=== PATIENT | male | born 1960 | race Caucasian/White ===

== ENCOUNTER 2018-09-22 11:32 | Inpatient (IN) | payer MEDICAID, MEDICARE ==
[2018-09-22] MEDS ORDERED: NS 0.9% 1000 ML** 1,000 ML IV ONE (11:53)
--- NOTE | 2018-09-22 11:57 | ED ---
Complex/Multi-Sys Presentation - HPI Summary HPI Summary: This pt is a 57 y/o male presenting to [facility] for generalized weakness today. Pt lives at a shelter and has hx of MR. Per triage note "Home that pt lives in then sent him here for generalized weakness, diaphoretic and AMS." Per caregiver , pt is not at baseline and has not been eating or drinking. Per caregiver, pt was seen at [facility] today and was discharged with gastroenteritis. Pt states he has diarrhea. He is noted to have a nonproductive cough. Denies any pain, headache, sore throat, chest pain, abd pain. PMHx schizophrenia. HPI IS LIMITED DUE TO LEVEL 5 CAVEAT - pt with MR - History Of Current Complaint Chief Complaint: EDWeakness Time Seen by Provider: 09/22/18 11:43 Hx Obtained From: Patient Hx From Patient Unobtainable Due To: Other - LEVEL 5 CAVEAT - pt with MR Onset/Duration: Lasting Hours, Still Present Timing: Hours Aggravating Factor(s): unknown Alleviating Factor(s): unknown Associated Signs And Symptoms: Positive: Cough, Diarrhea, Other - NEG: sore throat. Negative: Headache, Chest Pain, Abdominal Pain, Fever - Allergies/Home Medications Allergies/Adverse Reactions: Allergies Allergy/AdvReac Type Severity Reaction Status Date / Time bee venom protein (honey bee) Allergy Unknown Verified 09/22/18 11:40 Reaction Details Home Medications: Home Medications Albuterol Sulfate [Proventil Hfa] 6.7 gm INH Q4HR PRN 09/22/18 [History Confirmed 09/22/18] Aspirin TAB* [Aspirin 325 MG TAB*] 325 mg PO DAILY 09/22/18 [History Confirmed 09/22/18] Atorvastatin* [Lipitor*] 80 mg PO BEDTIME 09/22/18 [History Confirmed 09/22/18] Benzonatate CAP* [Tessalon 100 MG CAP*] 200 mg PO Q8HR PRN 09/22/18 [History Confirmed 09/22/18] CloZAPine TAB* 100 mg PO DAILY 09/22/18 [History Confirmed 09/22/18] CloZAPine TAB* 300 mg PO BEDTIME 09/22/18 [History Confirmed 09/22/18] Escitalopram * [Lexapro 5 mg (NF)] 5 mg PO DAILY 09/22/18 [History Confirmed 07/12] Losartan TAB* [Cozaar TAB*] 12.5 mg PO BEDTIME 09/22/18 [History Confirmed 09/22] fluPHENAZine HCL TAB* [Prolixin TAB*] 10 mg PO DAILY PRN 09/22/18 [History Confirmed 09/22/18] fluPHENAZine HCL TAB* [Prolixin TAB*] 15 mg PO BEDTIME 09/22/18 [History Confirmed 09/22/18] PMH/Surg Hx/FS Hx/Imm Hx Previously Healthy: No - Unknown due to level 5 caveat Psychiatric History: Reports: Hx Schizophrenia Infectious Disease History: No Infectious Disease History: Denies: Traveled Outside the [place] in Last 30 Days - Family History Known Family History: Positive: Unknown - LEVEL 5 CAVEAT - pt with MR - Social History Lives: [facility] Alcohol Use: None Substance Use Type: Reports: None Review of Systems - ROS Summary Review of Systems Summary: ROS IS LIMITED DUE TO LEVEL 5 CAVEAT - pt with MR Negative: Fever Negative: Sore Throat Negative: Chest Pain Positive: Cough Positive: Diarrhea. Negative: Abdominal Pain Positive: Weakness. Negative: Headache All Other Systems Reviewed And Are Negative: No Physical Exam - Summary Physical Exam Summary: VITAL SIGNS: Reviewed. GENERAL: Patient is a well-developed and elderly thin male who is lying comfortable in the stretcher. Patient is not in any acute respiratory distress. HEAD AND FACE: No signs of trauma. No ecchymosis, hematomas or skull depressions. No sinus tenderness. EYES: PERRLA, EOMI x 2, No injected conjunctiva, no nystagmus. EARS: Hearing grossly intact. Ear canals and tympanic membranes are within normal limits. MOUTH: Oropharynx within normal limits. Oral mucosa is dry. Poor dentition. No pharyngeal erythema. NECK: Supple, trachea is midline, no adenopathy, no JVD, no carotid bruit, no c- spine tenderness, neck with full ROM. CHEST: Symmetric, no tenderness at palpation LUNGS: Clear to auscultation bilaterally. No wheezing or crackles. CVS: Regular rate and rhythm, S1 and S2 present, no murmurs or gallops appreciated. ABDOMEN: Soft, non-tender. No signs of distention. No rebound no guarding, and no masses palpated. Bowel sounds are normal. EXTREMITIES: FROM in all major joints, no edema, no cyanosis or clubbing. NEURO: Alert and oriented at baseline. No acute neurological deficits. Follows commands. Pt unable to answer all questions secondary to mental retardation. SKIN: Dry and warm Triage Information Reviewed: Yes Vital Signs On Initial Exam: Initial Vitals Temp Pulse Resp BP Pulse Ox 98.0 F 97 20 128/78 97 09/22/18 11:36 09/22/18 11:36 09/22/18 11:36 09/22/18 11:36 09/22/18 11:36 Vital Signs Reviewed: Yes Completion Of Physical Exam Limited Due To: Level 5 - pt with MR Diagnostics - Vital Signs Vital Signs Temp Pulse Resp BP Pulse Ox 09/22/18 11:36 98.0 F 97 20 128/78 97 - Laboratory Result Diagrams: 09/22/18 12:23 09/22/18 12:23 Lab Statement: Any lab studies that have been ordered have been reviewed, and results considered in the medical decision making process. - Radiology Chest XR Radiology Interpretation Completed By: Radiologist Summary of Radiographic Findings: IMPRESSION: There is suggestion of right upper lobe infiltrate. Follow-up exam is suggested. Dr. Quinn has reviewed this report. Complex Multi-Symp Course/Dx Assessment/Plan: This pt is a 57 y/o male presenting to [facility] for generalized weakness today. Pt lives at a shelter and has hx of MR. Per triage note "Home that pt lives in then sent him here for generalized weakness, diaphoretic and AMS." Per caregiver, pt is not at baseline and has not been eating or drinking. Per caregiver, pt was seen at [facility] today and was discharged with gastroenteritis. Pt states he has diarrhea. He is noted to have a nonproductive cough. Denies any pain, headache, sore throat, chest pain, abd pain. PMHx schizophrenia. Test results without any significant abnormality except for white blood cell count of 13.2, BUN is 35, alkaline phosphatase is 112. Urinalysis is negative for UTI. Chest x-ray shows right upper lobe infiltrate. CURB65: Has a moderate risk. Therefore I discussed my physical exam, findings and test results with Dr. Penaloza, from the hospitalist services, who accepted the patient for admission. Patient is hemodynamically stable. - Diagnoses Provider Diagnoses: Pneumonia - Physician Notifications Discussed Care Of Patient With: Siva Penaloza - hospitalist Time Discussed With Above Provider: 13:35 Instructed by Provider To: Admit As Inpatient Discharge - Sign-Out/Discharge Documenting (check all that apply): Patient Departure - Admit to [facility] Patient Received Moderate/Deep Sedation with Procedure: No - Discharge Plan Condition: Stable Disposition: ADMITTED TO [facility] - Billing Disposition and Condition Condition: STABLE Disposition: Admitted to [facility] - Attestation Statements Document Initiated by Obede: Yes Documenting Scribe: Lexie Beavers Provider For Whom Andrew is Documenting (Include Credential): Carlos Alberto Quinn MD Scribe Attestation: Lexie Almazan, scribed for Carlos Alberto Quinn MD on 09/22/18 at 1829. Scribe Documentation Reviewed: Yes Provider Attestation: The documentation as recorded by the Lexie wen accurately reflects the service I personally performed and the decisions made by , Carlos Alberto Quinn MD Status of Scribe Document: Viewed
[2018-09-22] MEDS ORDERED: cefTRIAXone(*) 1 GM in NS 0.9% 50 ML* 50 ML IVPB ONE (12:33)
[2018-09-22 12:37] LABS: ABS Basophils 0.1 10^3/ul (0-0.2); ABS Eosinophils 0 10^3/ul (0-0.6); ABS Lymphocytes 1.5 10^3/ul (1.0-4.8); ABS Monocytes 1.1 10^3/ul (0-0.8); ABS Neutrophils 10.6 10^3/ul (1.5-7.7); ABS Nucleated RBC 0 10^3/ul; Eosinophil % 0.2 %; Hematocrit 45 % (36-46); Hemoglobin 15.1 g/dL (14.0-18.0); Lymphocyte % 11.2 %; Mean Corpuscular HGB Conc 33 g/dL (31-36); Mean Corpuscular Hemoglobin 30 pg (27-31); Mean Corpuscular Volume 89 fL (80-94); Mean Platelet Volume 7.8 fL (7.4-10.4); Nucleated Red Blood Cells % 0; Platelet Count 291 10^3/uL (150-450); Red Blood Count 5.09 10^6 /uL (4.18-5.48); Red Cell Distribution Width 15 % (10.5-15); White Blood Count 13.2 10^3/uL (3.5-10.8)
[2018-09-22 12:59] LABS: Albumin 4.1 g/dL (3.2-5.2); Albumin/Globulin Ratio 1.5 (1-3); BUN/Creatinine Ratio 42.7 (8-20); C Reactive Protein 3.71 mg/L (<8.01); EGFR African American 116.8 (>60); EGFR Non-African American 96.5 (>60); Globulin 2.7 g/dL (2-4); Total Bilirubin 0.8 mg/dL (0.2-1.0); Total Protein 6.8 g/dL (6.4-8.9)
[2018-09-22 14:22] LABS: Urine Appearance Clear; Urine Bacteria Absent (Absent); Urine Bilirubin Negative (Negative); Urine Blood Negative (Negative); Urine Color Yellow; Urine Glucose Negative (Negative); Urine Ketones 2+ (Negative); Urine Nitrite Negative (Negative); Urine Protein 1+(30 mg/dL) (Negative); Urine Red Blood Cell Trace(0-2/hpf) (Absent); Urine Specific Gravity 1.025 (1.010-1.030); Urine Squamous Epithelial Cell Present (Absent); Urine Urobilinogen Negative (Negative); Urine White Blood Cell Absent (Absent)
[2018-09-22] MEDS ORDERED: Albuterol/Ipratropium NEB.SOL* Albuterol 2.5 MG/Ipratropium 0.5 MG 3 ML INH PRN (14:32)
[2018-09-22] MEDS ORDERED: Albuterol HFA INHALER* 8 gm MDI INH PRN (14:39)
[2018-09-22] MEDS ORDERED: fluPHENAZine HCL TAB* 5 MG PO PRN (14:39)
[2018-09-22] MEDS ORDERED: NS 0.9% 1000 ML** 1,000 ML IV SCH (14:45)
[2018-09-22] MEDS: Benzonatate CAP* 100 MG PO PRN ×2 (17:10→23:51)
[2018-09-22] MEDS: predniSONE TAB* 20 MG PO SCH (17:11)
[2018-09-22] MEDS: Enoxaparin(*) 40 MG/0.4 ML SYR SUBCUT SCH (17:15)
[2018-09-22] MEDS: Azithromycin IV(*) 500 MG in NS 0.9% 250 ML* 250 ML IVPB SCH (17:16)
--- NOTE | 2018-09-22 19:00 | HP ---
CC: Dr. Key * HISTORY AND PHYSICAL: DATE OF ADMISSION: 09/22/18 PRIMARY CARE PROVIDER: Dr. Key at [facility] in [place]. ATTENDING PHYSICIAN: Dr. Siva Penaloza * (dictated by ELYSSA Cardona) CHIEF COMPLAINT: Cough, generalized weakness, diaphoresis, and fatigue. HISTORY OF PRESENT ILLNESS: Mr. Branch is a 57-year-old male with a past medical history as described below, who presents to the ER today with a complaint of cough. He is a gentleman, who lives at [facility] in [place]. Staff note that he has generalized weakness and diaphoresis for the last couple of days. He was noted to have gone to [facility] this morning and was diagnosed with gastroenteritis. He was not improving throughout the day and was then brought to the ER. He is noted to have a productive cough since this morning. Staff note that the patient typically has a slight dry cough most of the time. He is also noted to have some mentation changes. Staff state that he is typically relatively talkative, but today he appears to be fatigued and mumbling his words. He does speak coherently, but appears fatigued. It is noted that the last time he ate was 2 to 3 days ago. His intake consists only of coffee for the last approximately 3 days. It is also noted that he has had no reported diarrhea, per patient and staff nurse, but that he did have an episode of dry heaves with no emesis this morning. He is sleepy and when asked questions he answers, but with few words. He states that he has had a cough, but denies diarrhea. He does admit to some shortness of breath. He denies abdominal pain. He denies urinary symptoms such as frequency, urgency, burning. He denies fever, chills, but he has had occasional diaphoresis, his housing staff report. While in the emergency room, a full workup was done. Chest x-ray was performed, which suggested right upper lobe infiltrate and followup exams. Laboratory data showed leukocytosis. Urinalysis was negative for urinary tract infection. In the ER, he was given 1 L of normal saline and 1 g of ceftriaxone. Hospitalist team was asked to evaluate the patient for admission. PAST MEDICAL HISTORY: 1. COPD. 2. Coronary artery disease. 3. Anxiety/depression. 4. Tobacco abuse. 5. History of schizophrenia. 6. Probable hypertension. PAST SURGICAL HISTORY: Unobtainable. HOME MEDICATIONS: 1. Fluphenazine HCl 10 mg p.o. at bedtime. 2. Fluphenazine HCl 10 mg p.o. p.r.n. psychosis. 3. Escitalopram 5 mg p.o. daily. 4. Atorvastatin 80 mg p.o. at bedtime. 5. Losartan 12.5 mg p.o. at bedtime. 6. Albuterol sulfate 6.7 g inhalation q.4 hours p.r.n. 7. Aspirin 325 mg p.o. daily. 8. Clozapine 100 mg p.o. in the morning. 9. Clozapine 300 mg p.o. at bedtime. 10. Benzonatate 200 mg p.o. q.8 hours p.r.n. 11. Toprol-XL 12.5 mg p.o. daily. 12. Ibuprofen p.r.n. ALLERGIES: BEE VENOM. FAMILY HISTORY: Unable to obtain. SOCIAL HISTORY: Mr. Branch is a resident at [facility] in [place]. He smokes 1 pack per day for an unknown length of time. He does not use alcohol or illicit drugs. He does not work. Roosevelt, his sister, is his healthcare proxy. Her phone number is [phone]. REVIEW OF SYSTEMS: A 10-point review of systems was performed. The patient has developmental delay, so it was difficult to ascertain all information, but pertinent positives and negatives are in the HPI. PHYSICAL EXAMINATION GENERAL: Mr. Branch is a thin middle-aged man. He appears lethargic. He drifts off frequently during our conversation, but does respond to questioning with a few words. He is in no acute distress, but does appear ill. VITAL SIGNS: Temperature 98.0 temporal, heart rate 89, respiratory rate 22, oxygen saturation 93% on room air, blood pressure 130/84. HEENT: His visual butler are grossly intact. The pupils are equally round and reactive to light. Extraocular movements are intact. The sclerae are without icterus. Hearing is grossly intact. Oral mucous membranes are dry. There are no lesions. The pharynx is clear. CARDIOVASCULAR: Regular rate and rhythm with S1, S2 present. There are no murmurs, rubs, or gallops. There is no JVD. RESPIRATORY: Symmetrical chest expansion without use of accessory muscles. The bilateral lower lobes have decreased breath sounds. There is diffuse wheezing throughout the bilateral upper lung butler. No rhonchi or rubs. ABDOMEN: The abdomen is flat. Bowel sounds are normoactive throughout. The abdomen is soft and nontender to light and deep palpation. There is no hepatosplenomegaly. EXTREMITIES: Skin is warm and smooth bilaterally. There is no edema. There is upper extremity clubbing. There is no cyanosis. Radial and pedal pulses are palpable. NEURO: The patient is awake, but lethargic. He wakes easily. He is able to move all of his extremities. Motor strength in upper and lower extremities are 5/5 bilaterally and are equal. DIAGNOSTIC STUDIES/LAB DATA: WBC 13.2, RBC 5.09, Hgb 15.1, Hct 45. Sodium 136 , potassium 4.0, chloride 103, carbon dioxide 24, BUN 35, creatinine 0.82, BUN over creatinine ratio 42.7, lactic acid 1.3. Alk phos 112. Albumin 4.1, globulin 2.7. Chest x-ray, 09/22/18, impression: There is suggestion of right upper lobe infiltrate, followup exam is suggested. ASSESSMENT AND PLAN: Mr. Branch is a 57-year-old male with a past medical history as described above, who presents to the ER today with complaints of cough, weakness, diaphoresis, and altered mentation/lethargy. He will be admitted to observation for: 1. Leukocytosis. There is a question of whether the x-ray reveals an infiltrate or not. The patient has no signs or symptoms of gastroenteritis, which he was diagnosed with this morning. He has no diarrhea, no tenderness to palpation of the abdomen, and no emesis or nausea. He is afebrile. He does not have any urinary symptoms and his urinalysis reveals 1+ protein and 2+ ketones. He may have a pneumonia, but chest x-ray does not clearly point to a pneumonia. Consider repeat chest x-ray in the near future. At this point, he has been given 1 dose of ceftriaxone. He will be continued on ceftriaxone unless not indicated clinically. The patient will also be started on azithromycin as chronic obstructive pulmonary disease exacerbation is high on the differential at this point. 2. Chronic obstructive pulmonary disease exacerbation. The patient has baseline chronic obstructive pulmonary disease. He has decreased breath sounds in the lower lobes and diffuse wheezing in the upper lobes. He also has a change in his baseline cough without fever. DuoNebs ordered q.4 hours, prednisone ordered 60 q. day x5 days. His home Proventil will be continued. Azithromycin will be added for its anti-inflammatory properties. First dose will be today, continue x5 days. 3. Decreased oral intake. Staff at [facility] state that patient has not been eating properly x3 days. This is likely due to infection. His albumin was within normal limits. We will monitor and encourage p.o. intake. We will also monitor need for fluids. He will be given another liter of fluids starting now. Consider nutrition consult if this problem persists beyond treatment of infection. 4. Schizophrenia. Continue home medications, Clozaril, fluphenazine, Lexapro. 5. Hypertension. It is noted that the patient's chart from [facility] does not list hypertension in his past medical history, but he is on losartan and Toprol- XL, presumably for hypertension. These medications will be continued. His metoprolol will have hold parameters. 6. Coronary artery disease. Continue Lipitor and aspirin. 7. DVT prophylaxis. According to the DVT risk assessment, the patient scores 2 , which is moderate risk. Lovenox 40 daily was ordered. 8. Code status. Full code. TIME SPENT: Approximately 60 minutes was spent on this admission, greater than half of that time was spent with the patient and the caregiver obtaining history , performing physical, and reviewing the plan of care. The case has been reviewed with my attending, Dr. Penaloza, who is in agreement with the plan of care. ELYSSA PHOENIX [id number]/CPS #: [id number] DONNA
[2018-09-22] MEDS ORDERED: Losartan TAB* 25 MG PO SCH (21:00)
[2018-09-22] MEDS: Atorvastatin* 80 MG TAB PO SCH (21:50)
[2018-09-22] MEDS: fluPHENAZine HCL TAB* 5 MG PO SCH (21:50)
[2018-09-22] MEDS: CloZAPine TAB* 100 MG TAB PO SCH (21:50)
--- NOTE | 2018-09-23 02:01 | PN ---
Progress Note - Progress Note Date of Service: 09/23/18 Note: Called - Patient persistently coughing after drinking liquids. Remains confused. Will make NPO and order speech swallow eval
[2018-09-23 07:48] LABS: ABS Basophils 0 10^3/ul (0-0.2); ABS Eosinophils 0 10^3/ul (0-0.6); ABS Lymphocytes 1.6 10^3/ul (1.0-4.8); ABS Monocytes 0.8 10^3/ul (0-0.8); ABS Neutrophils 6.1 10^3/ul (1.5-7.7); ABS Nucleated RBC 0 10^3/ul; Eosinophil % 0.1 %; Hematocrit 41 % (36-46); Hemoglobin 13.8 g/dL (14.0-18.0); Lymphocyte % 18.6 %; Mean Corpuscular HGB Conc 34 g/dL (31-36); Mean Corpuscular Hemoglobin 30 pg (27-31); Mean Corpuscular Volume 89 fL (80-94); Mean Platelet Volume 7.8 fL (7.4-10.4); Nucleated Red Blood Cells % 0; Platelet Count 206 10^3/uL (150-450); Red Blood Count 4.63 10^6 /uL (4.18-5.48); Red Cell Distribution Width 15 % (10.5-15); White Blood Count 8.6 10^3/uL (3.5-10.8)
[2018-09-23 07:58] LABS: Albumin 3.5 g/dL (3.2-5.2); Albumin/Globulin Ratio 1.6 (1-3); BUN/Creatinine Ratio 33.8 (8-20); Calcium 8.2 mg/dL (8.6-10.3); EGFR African American 131.4 (>60); EGFR Non-African American 108.6 (>60); Globulin 2.2 g/dL (2-4); Potassium 3.8 mmol/L (3.5-5.0); Total Bilirubin 0.7 mg/dL (0.2-1.0); Total Protein 5.7 g/dL (6.4-8.9)
[2018-09-23] MEDS: Metoprolol Succinate XL TAB* 25 MG PO SCH ×2 (09:11→11:28)
[2018-09-23] MEDS: Aspirin TAB* 325 MG PO SCH ×2 (09:11→11:51)
[2018-09-23] MEDS: Escitalopram * 5 MG TAB PO SCH ×2 (09:11→11:51)
[2018-09-23] MEDS: CloZAPine TAB* 100 MG TAB PO SCH ×3 (09:11→21:40)
[2018-09-23] MEDS: predniSONE TAB* 20 MG PO SCH ×2 (09:12→11:51)
[2018-09-23] MEDS ORDERED: NS 0.9% 1000 ML** 1,000 ML IV ONE (11:31)
--- NOTE | 2018-09-23 12:53 | PN ---
Subjective Date of Service: 09/23/18 Interval History: Patient is sleeping at beginning of visit. He doesn't have complaints today. His sister explains that he does indeed rest often at the assisted living where he resides. Overnight the patient began coughing when drinking liquids; he has since been placed NPO in anticipation of speech evaluation. Patient's sister reports that he hasn't been coughing since he has been sitting upright in bed. He was coughing more when laying down earlier this morning, per pt's sister. Patient denies chest pain, dyspnea, abd pain, fever/chills. Objective Active Medications: Albuterol (Ventolin Hfa Inhaler*) 1 puff INH Q4HR PRN PRN Reason: WHEEZING Albuterol/Ipratropium (Duoneb (Albuterol 2.5 Mg/Ipratropium 0.5 Mg)) 1 neb INH [id number] AWAKE PRN PRN Reason: sob/wheexing Last Admin: 09/23/18 00:54 Dose: 1 neb Aspirin (Aspirin Tab*) 325 mg PO DAILY [facility] Last Admin: 09/23/18 11:51 Dose: 325 mg Atorvastatin Calcium (Lipitor*) 80 mg PO BEDTIME [facility]YAN[facility] Last Admin: 09/22/18 21:50 Dose: 80 mg Benzonatate (Tessalon Cap*) 200 mg PO Q8HR PRN PRN Reason: COUGH Last Admin: 09/22/18 23:51 Dose: 200 mg Clozapine (Clozapine Tab*) 100 mg PO DAILY [facility] Last Admin: 09/23/18 11:52 Dose: 100 mg Clozapine (Clozapine Tab*) 300 mg PO BEDTIME AYANNA Last Admin: 09/22/18 21:50 Dose: 300 mg Enoxaparin Sodium (Lovenox(*)) 40 mg SUBCUT Q24H AYANNA Last Admin: 09/22/18 17:15 Dose: 40 mg Escitalopram Oxalate (Lexapro *) 5 mg PO DAILY [facility]; Protocol Last Admin: 09/23/18 11:51 Dose: 5 mg Fluphenazine HCl (Prolixin Tab*) 10 mg PO DAILY PRN PRN Reason: PSYCHOSIS Fluphenazine HCl (Prolixin Tab*) 10 mg PO BEDTIME [facility] Last Admin: 09/22/18 21:50 Dose: 10 mg Ceftriaxone Sodium 1 gm/ (Sodium Chloride) 50 mls @ 200 mls/hr IVPB Q24H [facility] Azithromycin 500 mg/ Sodium (Chloride) 250 mls @ 250 mls/hr IVPB Q24H [facility] Stop: 09/27/18 16:59 Last Admin: 09/22/18 17:16 Dose: 250 mls/hr Losartan Potassium (Cozaar Tab*) 12.5 mg PO BEDTIME [facility] Last Admin: 09/22/18 21:50 Dose: 12.5 mg Metoprolol Succinate (Toprol Xl Tab*) 12.5 mg PO DAILY [facility] Last Admin: 09/23/18 11:28 Dose: Not Given Prednisone (Deltasone Tab*) 60 mg PO DAILY [facility] Stop: 09/26/18 09:01 Last Admin: 09/23/18 11:51 Dose: 60 mg Vital Signs - 8 hr 09/23/18 09/23/18 09/23/18 07:19 07:22 11:12 Temperature 97.2 F 97.2 F 97.9 F Pulse Rate 70 79 Respiratory 18 18 18 Rate Blood Pressure 108/65 97/57 (mmHg) O2 Sat by Pulse 99 95 Oximetry 09/23/18 11:28 Temperature Pulse Rate Respiratory Rate Blood Pressure 90/50 (mmHg) O2 Sat by Pulse Oximetry Oxygen Devices in Use Now: Nasal Cannula - 2L Appearance: Thin white male laying comfortably upright in hospital bed, appearing in NAD; sister at bedside Eyes: No Scleral Icterus, PERRLA Ears/Nose/Mouth/Throat: Mucous Membranes Moist Neck: NL Appearance and Movements; NL JVP Respiratory: Symmetrical Chest Expansion and Respiratory Effort, - - minimal end -expiratory wheeze in left lower lobe; no rhales or rhonchi Cardiovascular: NL Sounds; No Murmurs; No JVD, RRR Abdominal: - - abdomen soft, nontender, nondistended Extremities: No Edema, No Clubbing, Cyanosis, - - neg calf tenderness Skin: No Rash or Ulcers Neurological: Alert and Oriented x 3 Result Diagrams: 09/23/18 07:25 09/23/18 07:25 Assess/Plan/Problems-Billing Assessment: 57 yo white male with PMHx COPD, CAD, and schizophrenia presents to the ED from [facility], after being sent by staff at [facility] in [place] for generalized weakness, fatigue, and cough. - Patient Problems (1) Sepsis Comment: -likely secondary to pneumonia; CXR at admission with right upper lobe consolidation and trachea deviation to the right -ordered CT chest w/o contrast -leukocytosis improved today -pt continues to have hypotension despite fluid bolus, continue to monitor, continue 1L maintenance fluids; pt does not have other markers of end-organ damage -started on ceftriaxone and azithromycin; switching ceftriaxone to zosyn as described below (2) COPD exacerbation Code(s): J44.1 - CHRONIC OBSTRUCTIVE PULMONARY DISEASE W (ACUTE) EXACERBATION SNOMED Code(s): 791905632 Comment: -continue prednisone 60 mg, duonebs prn, albuterol inhaler prn (3) Aspiration into airway Code(s): T17.908A - UNSP FB IN RESP TRACT, PART UNSP CAUSING OTH INJURY, INIT SNOMED Code(s): 267273896 Comment: -possible aspiration overnight -speech eval recommends nectar thick liquids and mechanical soft diet -switching ceftriaxone to zosyn for anaerobic coverage (4) CAD (coronary artery disease) Code(s): I25.10 - ATHSCL HEART DISEASE OF [place] CORONARY ARTERY W/O ANG PCTRS SNOMED Code(s): 63567879 Comment: -holding home metoprolol and losartan in setting of hypotension -continue home ASA and lipitor (5) Schizophrenia Code(s): F20.9 - SCHIZOPHRENIA, UNSPECIFIED SNOMED Code(s): 75114568 Comment: -continue home fluphenazine and clozapine (6) Depression Current Visit: Yes Status: Acute Code(s): F32.9 - MAJOR DEPRESSIVE DISORDER , SINGLE EPISODE, UNSPECIFIED SNOMED Code(s): 98503978 Comment: -continue home lexapro (7) Full code status Code(s): Z78.9 - OTHER SPECIFIED HEALTH STATUS SNOMED Code(s): 306993012 (8) DVT prophylaxis Code(s): KXI1992 - SNOMED Code(s): 073353914 Comment: -continue lovenox
[2018-09-23] MEDS ORDERED: cefTRIAXone(*) 1 GM in NS 0.9% 50 ML* 50 ML IVPB SCH (13:00)
[2018-09-23] MEDS: Lactated Ringers 1000 ML Bag* 1,000 ML IV SCH ×3 (13:20→16:26)
[2018-09-23] MEDS ORDERED: ZOSYN 3.375 GM x ONE DOSE over 30 miuntes IVPB ×2 (14:00)
[2018-09-23] MEDS: Azithromycin IV(*) 500 MG in NS 0.9% 250 ML* 250 ML IVPB SCH (16:26)
[2018-09-23] MEDS: Enoxaparin(*) 40 MG/0.4 ML SYR SUBCUT SCH (16:26)
[2018-09-23] MEDS ORDERED: diPHENhydraMINE PO* 25 MG PO PRN (17:32)
[2018-09-23 18:41] LABS: BUN/Creatinine Ratio 24.4 (8-20); Calcium 8.2 mg/dL (8.6-10.3); EGFR African American 123.7 (>60); EGFR Non-African American 102.2 (>60); Potassium 3.8 mmol/L (3.5-5.0)
[2018-09-23] MEDS: Piperacillin/Tazobac ADVAN(*) 3.375 GM in NS 0.9% 100 ML* 100 ML IVPB SCH (18:42)
[2018-09-23] MEDS: Atorvastatin* 80 MG TAB PO SCH (21:37)
[2018-09-23] MEDS: fluPHENAZine HCL TAB* 5 MG PO SCH (21:37)
[2018-09-23] MEDS: Lactated Ringers 1000 ML Bag* 1,000 ML IV ONE (23:56)
[2018-09-24] MEDS: Lactated Ringers 1000 ML Bag* 1,000 ML IV ONE (00:51)
[2018-09-24] MEDS: Piperacillin/Tazobac ADVAN(*) 3.375 GM in NS 0.9% 100 ML* 100 ML IVPB SCH ×3 (03:16→17:00)
[2018-09-24] MEDS: Lactated Ringers 1000 ML Bag* 1,000 ML IV SCH (06:05)
[2018-09-24 07:15] LABS: Hematocrit 38 % (36-46); Mean Corpuscular HGB Conc 34 g/dL (31-36); Mean Corpuscular Hemoglobin 30 pg (27-31); Mean Corpuscular Volume 89 fL (80-94); Mean Platelet Volume 8.1 fL (7.4-10.4); Platelet Count 192 10^3/uL (150-450); Red Blood Count 4.32 10^6 /uL (4.18-5.48); Red Cell Distribution Width 14 % (10.5-15); White Blood Count 7.1 10^3/uL (3.5-10.8)
[2018-09-24 07:25] LABS: BUN/Creatinine Ratio 24.6 (8-20); Calcium 8.2 mg/dL (8.6-10.3); EGFR African American 142.5 (>60); EGFR Non-African American 117.8 (>60); Potassium 3.5 mmol/L (3.5-5.0)
[2018-09-24] MEDS: predniSONE TAB* 20 MG PO SCH (08:20)
[2018-09-24] MEDS: CloZAPine TAB* 100 MG TAB PO SCH ×2 (08:20→20:06)
[2018-09-24] MEDS: Escitalopram * 5 MG TAB PO SCH (08:20)
[2018-09-24] MEDS: Aspirin TAB* 325 MG PO SCH (08:20)
[2018-09-24] MEDS: Azithromycin IV(*) 500 MG in NS 0.9% 250 ML* 250 ML IVPB SCH (17:10)
[2018-09-24] MEDS: Enoxaparin(*) 40 MG/0.4 ML SYR SUBCUT SCH ×2 (17:10→17:11)
[2018-09-24] MEDS ORDERED: Spiriva Inhaler DEVICE* 1 EACH DEVICE INH ONE (18:00)
[2018-09-24] MEDS ORDERED: Spiriva Inhaler DEVICE* 1 EACH DEVICE INH SCH (18:00)
[2018-09-24] MEDS: Tiotropium CAP.INH* CAP.INH/18 MCG (USE ORDER SET !) INH SCH (19:35)
[2018-09-24] MEDS: Atorvastatin* 80 MG TAB PO SCH (20:06)
[2018-09-24] MEDS: fluPHENAZine HCL TAB* 5 MG PO SCH (20:06)
[2018-09-24] MEDS: Amoxicillin/Clavulanate TAB* 875 MG PO SCH (20:06)
[2018-09-25 06:43] LABS: ABS Basophils 0 10^3/ul (0-0.2); ABS Eosinophils 0 10^3/ul (0-0.6); ABS Lymphocytes 2.2 10^3/ul (1.0-4.8); ABS Monocytes 0.8 10^3/ul (0-0.8); ABS Neutrophils 7.6 10^3/ul (1.5-7.7); ABS Nucleated RBC 0 10^3/ul; Eosinophil % 0.3 %; Hematocrit 40 % (36-46); Hemoglobin 13.5 g/dL (14.0-18.0); Lymphocyte % 20.6 %; Mean Corpuscular HGB Conc 34 g/dL (31-36); Mean Corpuscular Hemoglobin 30 pg (27-31); Mean Corpuscular Volume 89 fL (80-94); Nucleated Red Blood Cells % 0.1; Platelet Count 210 10^3/uL (150-450); Red Blood Count 4.49 10^6 /uL (4.18-5.48); Red Cell Distribution Width 15 % (10.5-15); White Blood Count 10.7 10^3/uL (3.5-10.8)
[2018-09-25] MEDS: Tiotropium CAP.INH* CAP.INH/18 MCG (USE ORDER SET !) INH SCH (07:27)
[2018-09-25] MEDS: predniSONE TAB* 20 MG PO SCH (07:58)
[2018-09-25] MEDS: Amoxicillin/Clavulanate TAB* 875 MG PO SCH (07:58)
[2018-09-25] MEDS: Aspirin TAB* 325 MG PO SCH (07:59)
[2018-09-25] MEDS: CloZAPine TAB* 100 MG TAB PO SCH (07:59)
[2018-09-25] MEDS: Escitalopram * 5 MG TAB PO SCH (07:59)
[2018-09-25 08:00] VITALS: BP 137/81
[2018-09-25] MEDS ORDERED: Azithromycin TAB* 250 MG PO SCH (09:00)
--- NOTE | 2018-10-13 19:50 | PN ---
Subjective Date of Service: 09/24/18 Interval History: Patient reports feeling well. He still has a cough. He otherwise denies fever/ chills, nausea, vomiting, abd pain. Objective Oxygen Devices in Use Now: Nasal Cannula Appearance: Thin, white male, sitting upright in hospital bed, appearing in NAD Eyes: No Scleral Icterus, PERRLA Ears/Nose/Mouth/Throat: Mucous Membranes Moist, - - Edentulous Neck: NL Appearance and Movements; NL JVP Respiratory: Symmetrical Chest Expansion and Respiratory Effort, - - wheezing bilaterally Cardiovascular: RRR Abdominal: - - abdomen soft, nontender, nondistended Extremities: No Edema, No Clubbing, Cyanosis Skin: No Rash or Ulcers Neurological: Alert and Oriented x 3, NL Muscle Strength and Tone Result Diagrams: 09/25/18 06:27 09/24/18 06:06 Assess/Plan/Problems-Billing Assessment: 57 yo white male with PMHx COPD, CAD, and schizophrenia presents to the ED from [facility], after being sent by staff at [facility] in [place] for generalized weakness, fatigue, and cough. - Patient Problems (1) Sepsis Comment: -likely secondary to pneumonia; CXR at admission with right upper lobe consolidation and trachea deviation to the right - CT chest w/o contrast demonstrates right lower lobe infiltrate -sepsis resolved; vital signs wnl and leukocytosis resolved (2) COPD exacerbation Code(s): J44.1 - CHRONIC OBSTRUCTIVE PULMONARY DISEASE W (ACUTE) EXACERBATION SNOMED Code(s): 621871643 Comment: -continue prednisone 60 mg, duonebs prn, albuterol inhaler prn -pt remains with low oxyen saturations at rest with supplemental O2, which he does not need at home -starting spiriva (3) Aspiration into airway Code(s): T17.908A - UNSP FB IN RESP TRACT, PART UNSP CAUSING OTH INJURY, INIT SNOMED Code(s): 532160920 Comment: -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/18 -speech eval recommends nectar thick liquids and mechanical soft diet -continue zosyn for anaerobic coverage (4) CAD (coronary artery disease) Code(s): I25.10 - ATHSCL HEART DISEASE OF [place] CORONARY ARTERY W/O ANG PCTRS SNOMED Code(s): 05583019 Comment: -holding home metoprolol and losartan in setting of prior hypotension -continue home ASA and lipitor (5) Schizophrenia Code(s): F20.9 - SCHIZOPHRENIA, UNSPECIFIED SNOMED Code(s): 79762037 Comment: -continue home fluphenazine and clozapine (6) Depression Status: Acute Code(s): F32.9 - MAJOR DEPRESSIVE DISORDER, SINGLE EPISODE, UNSPECIFIED SNOMED Code(s): 72229367 Comment: -continue home lexapro (7) Full code status Code(s): Z78.9 - OTHER SPECIFIED HEALTH STATUS SNOMED Code(s): 150439848 (8) DVT prophylaxis Code(s): [id number] - SNOMED Code(s): 399086100 Comment: -continue lovenox
--- NOTE | 2018-10-14 14:35 | DS ---
DISCHARGE SUMMARY: DATE OF ADMISSION: 09/22/18 DATE OF DISCHARGE: 09/25/18 PROVIDER: ELYSSA Cox. ATTENDING PHYSICIAN: Dr. Marck Guillory* (dictated by ELYSSA Cox). PRIMARY CARE PROVIDER: Dr. Key at [facility] in [place]. PRIMARY DIAGNOSES: 1. Sepsis secondary to pneumonia, sepsis resolved. 2. Possible aspiration. 3. Chronic obstructive pulmonary disease exacerbation. SECONDARY DIAGNOSES: 1. Schizophrenia. 2. Depression. 3. Coronary artery disease. 4. Anxiety. 5. Tobacco abuse. 6. Probable hypertension. STUDIES: Chest x-ray on 09/22/18, impression: "There is suggestion of right upper lobe infiltrate. Followup exam is suggested." Chest x-ray on 09/23/18, findings consistent with COPD, "no evidence of acute finding." Chest CT on 08/12, impression: Small right lower lobe infiltrate. Moderate to severe emphysematous change. Mild compression fracture of the T4 vertebral body. EKG on 09/23/18, impression: Normal sinus rhythm at 75 beats per minute. T-wave flattening throughout. No prior EKGs for comparison. No ST elevations or depressions. PERTINENT LAB DATA: White blood cell count of 13.2 on 09/22/18, white blood cell count of 10.7 on 09/25/18, lactic acid of 1.3 on 09/22/18. DISCHARGE MEDICATIONS: 1. Prednisone p.o. 30 mg for 3 days, 20 mg for 3 days, 10 mg for 3 days, and discontinue. 2. Augmentin 875 mg p.o. b.i.d. for 5 days. 3. Azithromycin 250 mg p.o. daily for 3 days. 4. Spiriva 1 cap inhaled every day. Continued home medications: 1. Fluphenazine 15 mg p.o. at bedtime. 2. Lexapro 5 mg p.o. daily. 3. Atorvastatin 80 mg p.o. daily. 4. Fluphenazine 10 mg p.o. daily p.r.n. psychosis. 5. Losartan 12.5 mg p.o. at bedtime. 6. Proventil inhaler 6.7 g inhaled every 4 hours p.r.n. wheezing. 7. Aspirin 325 mg p.o. daily. 8. Clozapine 300 mg p.o. at bedtime. 9. Clozapine 100 mg p.o. every day. 10. Tessalon 200 mg p.o. q.8 hours as needed for cough. HISTORY OF PRESENT ILLNESS/HOSPITAL COURSE: Tom Branch is a 57-year-old male with past medical history significant for COPD, tobacco use, coronary artery disease, and schizophrenia, who presented to the [facility] directed by assisted living staff at [facility] in [place] for complaint of a cough. At [facility], he was diagnosed with gastroenteritis, but then was not improving throughout the day and brought to the [facility] Emergency Department. He appeared more fatigued and was mumbling his words and had poor oral intake for the last 2 to 3 days. He admitted to some shortness of breath and was found to have oxygen saturation of 93% on room air. He had leukocytosis and chest x-ray demonstrated a right upper lobe infiltrate. The patient was diagnosed with pneumonia, complicated by sepsis and was treated empirically with ceftriaxone and azithromycin, given fluid bolus. On the first evening of his admission, he had immediate coughing when drinking water very quickly and was suspected to have an aspiration. His empiric ceftriaxone was changed to Zosyn for anaerobic coverage and Speech Pathology saw the patient to determine if there would need to be a diet change. Speech Pathology recommended nectar thick liquids and mechanical soft diet. The patient was quite frustrated by this new thickened liquids diet. Chest CT did later confirm that in fact there was an infiltrate in the right lower lobe and during his stay, the patient required supplemental oxygen to maintain O2 saturations above 94% at rest and this was the new oxygen requirement. On the date of discharge, patient required no additional oxygen and when ambulating, he was able to maintain oxygen saturations above 94% and he was deemed safe for discharge. During his stay, Spiriva was added to his regimen in addition to scheduled nebulizers to treat an underlying COPD exacerbation as well as oral prednisone. On the day of discharge, Speech Therapy reevaluated the patient and determined that the nectar thickened liquids is no longer necessary, but did recommend supervised meals as the patient had poor impulse control, but did continue to recommend mechanical soft diet due to the patient's poor dentition. During his hospital stay, his home psychiatric medicines of fluphenazine and clozapine were continued for treatment of his schizophrenia; for treatment of his depression, his home escitalopram was continued; for treatment of his coronary artery disease, his home aspirin and statin were continued; for treatment of his hypertension, his home antihypertensives of losartan and metoprolol were held because the patient was mildly hypotensive in the setting of sepsis throughout the first full day of admission. On the date of discharge, patient is feeling improved. He appears to be returning to his baseline. He is no longer requiring oxygen and his cough is less frequent and less productive. He denies fever, chills, nausea, vomiting, abdominal pain, or diarrhea. REVIEW OF SYSTEMS: An 11-point review of systems was completed and all pertinent positives and negatives as per above in the HPI. All others were negative. PHYSICAL EXAMINATION: General: A thin, middle-aged man, appears older than stated age, lying upright in hospital bed, appears in no acute distress. Head: Normocephalic and atraumatic. Eyes: PERRL. Sclerae anicteric. ENT: Mucous membranes moist. Edentulous. Neck: Without JVD. Neck is supple. Cardio: Regular rate and rhythm without murmurs, rubs, or gallops. Respiratory: Very mild crackles in right lower lobe, otherwise clear. Abdomen: Abdomen is soft, nontender, and nondistended without masses palpated. Extremities: No cyanosis , clubbing, or edema. Neurologic: The patient is alert and oriented x3. No focal deficits. Psych: The patient is not responding to internal stimuli. Mood and affect are euthymic. Skin: Skin is warm, dry, and intact. DISCHARGE PLAN: The patient is prescribed new medication of Spiriva for treatment of his COPD. For treatment of his COPD exacerbation, he is to continue prednisone taper as described above. For treatment of his pneumonia, Augmentin and azithromycin are prescribed and should be taken to completion. The patient refused tobacco cessation at discharge. It was advised that the patient return to the emergency department for new fevers or chills, shortness of breath or chest pain. For treatment of his coronary artery disease, he is to continue his aspirin and Lipitor. For treatment of his schizophrenia, he is continue his fluphenazine and clozapine. For treatment of his depression/ anxiety, he is to continue his escitalopram. For treatment of his hypertension , he needs to continue his losartan and metoprolol. DIET: Mechanical soft diet. It is recommended that the patient has distant supervised meals with small sips in slow pace of eating and drinking. ACTIVITY: The patient is to return to his regular activity without restrictions. DISPOSITION: [facility]. CONDITION ON DISCHARGE: Stable. TIME SPENT: Approximately 50 minutes was spent on this discharge, approximately half of the time spent at bedside. ELYSSA COX [id number]/[facility] #: [id number] DONNA
== END 2018-09-25 09:30 | disposition home or self-care (01) | DRG 871 ==
LOC: ED 11:32 → MED 14:32 → OBSVTOIN 09-23 10:00
PROVIDERS: ADMIT Internal Medicine; ATTEND Internal Medicine
DX: A41.9 Sepsis, unspecified organism (principal); J18.9 Pneumonia, unspecified organism; J44.1 Chronic obstructive pulmonary disease with (acute) exacerbation; I25.10 Atherosclerotic heart disease of native coronary artery without angina pectoris; F20.9 Schizophrenia, unspecified; T17.900A Unspecified foreign body in respiratory tract, part unspecified causing asphyxiation, initial encounter; X58.XXXA Exposure to other specified factors, initial encounter; Y92.239 Unspecified place in hospital as the place of occurrence of the external cause; F32.9 Major depressive disorder, single episode, unspecified; Z91.030 Bee allergy status; F79 Unspecified intellectual disabilities; Z79.82 Long term (current) use of aspirin; F17.210 Nicotine dependence, cigarettes, uncomplicated
CPT/HCPCS: 36415; 71046; 71250; 80048; 80053; 81003; 81015; 83605; 83690; 85025; 85027; 86140; 93005; 94640; 99283; A9270-GY; G0378; G8978-GP-CI; G8979-GP-CH; J0456; J0696; J1650; J2543; J7512

== ENCOUNTER 2019-01-14 19:05 | Observation (INO) | payer MEDICARE, MEDICAID ==
--- OUTSIDE RECORDS SUMMARY | 2019-01-14 19:54 | XMS REPORT | Continuity of Care Document ---
:1960 External Reference #:[id number] Author Name Jammie Stephenson Care Team Providers Name Role Phone Karson Key MD Primary Care Physician Unavailable Payers Date Identification Numbers Payment Provider Subscriber Policy Number: [id number] Medicare Tom Branch PayID: [id number] [facility] [address] [place] [address] Social History Type Date Description Comments Sex Unknown Marital Status Negative For Single Lives With Assisted living Occupation Disabled Tobacco Use Start: Unknown Patient is a current smoker, smokes every day Smoking Status Reviewed: 01/01/19 Patient is a current smoker, smokes every day Exercise Type/Frequency Does not exercise Vital Signs Date Vital Result Comment 01/01/2019 3:40pm Weight 145.50 lb Heart Rate 106 /min BP Systolic Sitting 100 mmHg BP Diastolic Sitting 76 mmHg Body Temperature 97.8 F Procedures Date Code Description Status 09/23/2018 22811 EKG, Interpretation Only Completed Encounters Type Date Location Provider Dx Diagnosis Office Visit 09/25/2018 [facility] Charla Cool, A41.9 Sepsis, 10:09a Assoc,bud PA-C unspecified Hospitalists organism J44.1 Chronic obstructive pulmonary disease w (acute) exacerbation F20.9 Schizophrenia, unspecified Office Visit 09/23/2018 10:09a [facility] Charla A41.9 Sepsis, Assoc,bud Cool PA-C unspecified Hospitalists organism J44.1 Chronic obstructive pulmonary disease w (acute) exacerbation I25.10 [place] heart [place] coronary artery w/o ang pctrs F20.9 Schizophrenia, unspecified Office Visit 09/22/2018 [facility] J44.1 Chronic 10:09a bud Gipson PA obstructive Hospitalists pulmonary disease w (acute) exacerbation R53.1 Weakness R61 Generalized hyperhidrosis F20.9 Schizophrenia, unspecified I10 Essential (primary) hypertension I25.10 Athscl heart disease [place] coronary artery w/o ang pctrs Plan of Treatment 01/01/2019 - Clinton Jolly MDK62.5 Hemorrhage of anus and rectumFollow up: None needed
--- NOTE | 2019-01-14 20:35 | ED ---
Psychiatric Complaint - HPI Summary HPI Summary: Pt is a 58 y/o M presenting to the ED brought in by EMS for a psychiatric complaint. Per the pts sister, the nursing staff at the pts facility called her to let her know that he has not been eating well, he has been more withdrawn than normal, and has a cough. He currently c/o mild indigestion. He denies abd pain, vomiting, diarrhea. No recent medication changes. - History Of Current Complaint Chief Complaint: EDMentalHealth Time Seen by Provider: 01/14/19 19:57 Hx Obtained From: Patient, Family/Tile Layer Drainage Onset/Duration: Gradual Onset, Lasting Days, Still Present Timing: Days Severity Initially: Moderate Severity Currently: Moderate Aggravating Factor(s): Nothing Alleviating Factor(s): Nothing Associated Signs And Symptoms: Positive: Appetite Change, Social Withdrawal Has Suicidal: Denies: Thoughts Has Homicidal: Denies: Thoughts - Allergies/Home Medications Allergies/Adverse Reactions: Allergies Allergy/AdvReac Type Severity Reaction Status Date / Time bee venom protein (honey bee) Allergy Unknown Verified 09/22/18 11:40 Reaction Details PMH/Surg Hx/FS Hx/Imm Hx Previously Healthy: Yes Endocrine/Hematology History: Denies: Hx Diabetes Sensory History: Denies: Hx Contacts or Glasses, Hx Hearing Aid Opthamlomology History: Denies: Hx Contacts or Glasses Neurological History: Reports: Other Neuro Impairments/Disorders - schizophrenia Psychiatric History: Reports: Hx Schizophrenia Infectious Disease History: No Infectious Disease History: Denies: Traveled Outside the [place] in Last 30 Days - Family History Known Family History: Negative: Hypertension - Social History Alcohol Use: None Hx Substance Use: No Substance Use Type: Reports: None Hx Tobacco Use: Yes Smoking Status (MU): Former Smoker Review of Systems Positive: Other - dec. appetite Positive: Cough Negative: Abdominal Pain Positive: Other - withdrawn All Other Systems Reviewed And Are Negative: Yes Physical Exam - Summary Physical Exam Summary: Constitutional: Thin male, Alert. (-) Distressed Skin: Warm, Dry HENT: Normocephalic; Atraumatic, poor dentition. intermittent protrusion of his tongue Eyes: Conjunctiva normal Neck: Musculoskeletal ROM normal neck. (-) JVD, (-) Stridor Cardio: Rhythm regular, rate normal, Heart sounds normal; Intact distal pulses; Radial pulses are 2+ and symmetric. (-) Murmur Pulmonary/Chest wall: Effort normal. (-) Respiratory distress, (-) Wheezes, (-) Rales Abd: Soft, (-) tenderness, (-) Distension, (-) Guarding, (-) Rebound Musculoskeletal: (-) Edema Lymph: (-) Cervical adenopathy Neuro: Alert, Oriented x3 Psych: Mood and affect withdrawn Triage Information Reviewed: Yes Vital Signs On Initial Exam: Initial Vitals Temp Pulse Resp BP Pulse Ox 97.1 F 90 14 116/99 97 01/14/19 19:07 01/14/19 19:07 01/14/19 19:07 01/14/19 19:07 01/14/19 19:07 Vital Signs Reviewed: Yes Diagnostics - Vital Signs Vital Signs Temp Pulse Resp BP Pulse Ox 01/14/19 19:07 97.1 F 90 14 116/99 97 - Laboratory Result Diagrams: 01/14/19 20:51 01/14/19 20:51 Lab Statement: Any lab studies that have been ordered have been reviewed, and results considered in the medical decision making process. - Radiology CXR Radiology Interpretation Completed By: ED Physician Summary of Radiographic Findings: No focal consolidations. Lungs are hyperinflated. Pending official radiology report. - EKG 2023 Cardiac Rate: NL - 80bpm EKG Rhythm: Sinus Rhythm ST Segment: Normal Ectopy: PVCs Summary of EKG Findings: EKG at 2023 shows NSR at 80bpm with multiple PVCs. No acute changes. Re-Evaluation - Re-Evaluation First Eval Comment: Patient's labs notable for white count 13.7, otherwise unremarkable. Although patient has a benign abdominal exam, patient vomited one time in the emergency department is an unreliable historian therefore check a CT of the abdomen and pelvis. Course/Dx - Course Course Of Treatment: 58-year-old male history of schizophrenia who was sent from [facility] for decreased appetite, withdrawn affect and concern for worsening of his schizophrenia. - On exam patient is withdrawn. Abdomen is soft and benign. Lungs are clear to auscultation bilaterally. - Check x-ray given her reported cough and smoking, check labs including a troponin. - Although patient denies abdominal pain, he reports indigestion unclear history which the lipase, CBC for underlying infection, CMP and pending those labs will consider imaging. Patient currently refusing to eat or drink. - Differential Dx/Clinical Impression Provider Diagnosis: Schizophrenia, Cough Discharge - Sign-Out/Discharge Documenting (check all that apply): Sign-Out Patient - pending MHE and UA Signing out patient TO: Aaron Azul - Discharge Plan Condition: Stable Referrals: No Primary Care Phys,NOPCP [Primary Care Provider] - - Billing Disposition and Condition Condition: STABLE - Attestation Statements Document Initiated by Scribe: Yes Documenting Scribe: Christi Gray Provider For Whom Catherineibe is Documenting (Include Credential): Aleksandr French MD. Scribe Attestation: IChristi, scribed for Aleksandr French MD. on 01/14/19 at 2210. Scribe Documentation Reviewed: Yes Provider Attestation: The documentation as recorded by the scribeChristi accurately reflects the service I personally performed and the decisions made by Aleksandr cortés MD. Status of Scribe Document: Viewed
[2019-01-14 20:59] LABS: ABS Basophils 0.1 10^3/ul (0-0.2); ABS Eosinophils 0.1 10^3/ul (0-0.6); ABS Lymphocytes 1.3 10^3/ul (1.0-4.8); ABS Neutrophils 11.2 10^3/ul (1.5-7.7); Eosinophil % 0.5 %; Hematocrit 44 % (42-52); Hemoglobin 14.9 g/dL (14.0-18.0); Lymphocyte % 9.5 %; Mean Corpuscular HGB Conc 34 g/dL (31-36); Mean Corpuscular Hemoglobin 30 pg (27-31); Mean Corpuscular Volume 88 fL (80-94); Mean Platelet Volume 7.3 fL (7.4-10.4); Platelet Count 295 10^3/uL (150-450); Red Cell Distribution Width 15 % (10-15); White Blood Count 13.7 10^3/uL (3.5-10.8)
[2019-01-14 21:18] LABS: ALT 19 U/L (7-52); AST 17 U/L (13-39); Albumin 4.1 g/dL (3.2-5.2); Albumin/Globulin Ratio 1.4 (1-3); Alkaline Phosphatase 127 U/L (34-104); Anion Gap 8 mmol/L (2-11); BUN/Creatinine Ratio 15.6 (8-20); Blood Urea Nitrogen 12 mg/dL (6-24); CO2 Carbon Dioxide 27 mmol/L (22-32); Calcium 9.5 mg/dL (8.6-10.3); Chloride 100 mmol/L (101-111); EGFR African American 125.1 (>60); EGFR Non-African American 103.4 (>60); Globulin 2.9 g/dL (2-4); Glucose 101 mg/dL (70-100); Potassium 3.7 mmol/L (3.5-5.0); Sodium 135 mmol/L (135-145)
[2019-01-14] MEDS ORDERED: Lidocaine 2% VISCOUS* 15 ML UDC PO ONE (21:32)
[2019-01-14] MEDS ORDERED: Al Hydrox/Mg Hydrox/Simet LIQ* 30 ML UDC PO ONE (21:32)
--- NOTE | 2019-01-14 21:56 | ED ---
Progress - Progress Note Progress Note: This pt is a sign out from Dr. French to Dr. Azul at shift change 2199 pending a MHU Eval. Time: 316 I did review patient's CAT scan results. Patient did vomit a few times in the emergency room. Patient given Reglan without improvement. Patient given 5 mg of Valium IV push. History the patient nausea is gone and he can eat. Once he ate ,he started to vomit again Patient declined any foreign body ingestion. Patient advised with the CAT scan result. Patient abdominal aortic aneurysm does not need intervention at this time. Patient's symptoms most likely secondary to cyclic vomiting. Cause of patient's persistent vomiting patient will be admitted to the hospital. Case discussed with admitting hospitalist commissioner of relocation services Dr. Mcgrath. Patient will be admitted to her service - Results/Orders Results/Orders: The pt received a CT A/P during his wait for his MHU Evaluation which found 1. There is a 1 cm linear ossific density noted in a small bowel loop findings may represent a swallowed foreign body. Recommend clinical correlation. Findings are best seen on axial image 47 and coronal image 40. 2. There are extensive emphysematous changes and bullous changes noted in the bilateral lung bases. 3. There is an infrarenal abdominal aortic aneurysm noted measuring approximately 4 x 3.5 CM with significant mural thrombus. 4. The prostate is enlarged measuring 5.1 x 2.7 CM. ED Physician has reviewed this report. Re-Evaluation - Re-Evaluation First Eval Re-Evaluation Time: 00:20 Change: Improved Comment: the pt is medically cleared for a MHU Evaluation after his CT A/P results were returned and his lab results were also completed. Course/Dx - Course Course Of Treatment: This pt is a sign out from Dr. French to Dr. Azul at shift change 219901/14/19 pending a MHU Eval. His CT A/P showed 1. There is a 1 cm linear ossific density noted in a small bowel loop findings. may represent a swallowed foreign body. Recommend clinical correlation. Findings are best seen on axial image 47 and coronal image 40. 2. There are extensive emphysematous changes and bullous changes noted in the. bilateral lung bases. 3. There is an infrarenal abdominal aortic aneurysm noted measuring. approximately 4 x 3.5 CM with significant mural thrombus. 4. The prostate is enlarged measuring 5.1 x 2.7 CM. He was medically cleared for a MHU Evaluation at 0020 01/15/19. The pt will be admitted to [facility] by Dr. Mcgrath, Hospitalist, with a Dx of AAA, cylical vomiting, and foreign body ingestion. - Diagnoses Provider Diagnoses: AAA (abdominal aortic aneurysm), Cyclical vomiting, Foreign body ingestion - Provider Notifications Discussed Care Of Patient With: Ngoc Mcgrath Time Discussed With Above Provider: 03:35 Instructed by Provider To: Admit As Inpatient Discharge - Sign-Out/Discharge Documenting (check all that apply): Patient Departure - admitted Patient Received Moderate/Deep Sedation with Procedure: No - Discharge Plan Condition: Stable Disposition: ADMITTED TO [facility] Referrals: No Primary Care Phys,NOPCP [Primary Care Provider] - Additional Instructions: Per completion of a mental health evaluation, you are cleared for release and do not require inpatient psychiatric hospitalization at this time. Please go to nearest emergency room or call 911 if safety concerns arise or condition worsens. Contact [facility] for follow up psychiatric care. [facility], [address] [place] [address] [address] [place], [place] Hours of Operation Saturday 8:00 am - 5:00 pm Saturday & Saturday 8:00 am - 7:00 pm 8:00 am - 5:00 pm Saturday 8:00 am - 4:00 pm Important Phone Numbers: [facility] Unit........... [phone] Suicide Prevention and Crisis Services........................ [phone] National Suicide Prevention Lifeline............................ 234-952-RFEH (1198) [facility]....................... [phone] Alcoholics Anonymous............................................... [phone] [facility].............. [phone] [facility] Police.............................................. - Attestation Statements Document Initiated by Catherineibe: Yes Documenting Scribe: Greg Block Provider For Whom Catherineibe is Documenting (Include Credential): Aaron Azul MD Scribe Attestation: I, Greg Block, scribed for Aaron Azul MD on 01/15/19 at 0332. Status of Scribe Document: Ready
[2019-01-14 22:01] LABS: Acetaminophen < 15 mcg/mL; Alcohol < 10 mg/dL (<10); Salicylate < 2.50 mg/dL (<30)
[2019-01-14] MEDS ORDERED: NS 0.9% 1000 ML** 1,000 ML IV ONE (22:07)
[2019-01-14] MEDS ORDERED: Ondansetron INJ* 2 MG/ML VIAL IV ONE (22:07)
[2019-01-14 22:10] LABS: TSH (Thyroid Stimulating Horm) 1.78 mcIU/mL (0.34-5.60)
[2019-01-14] MEDS ORDERED: Iohexol 300* (CONTRAST) 10 ML SDV IV ONE (22:19)
[2019-01-14] MEDS ORDERED: Ondansetron INJ* 2 MG/ML VIAL ONE (22:33)
[2019-01-15] MEDS ORDERED: Metoclopramide IV* 5 MG/ML 2 ML VIAL IV SLOW PU ONE (01:05)
[2019-01-15] MEDS ORDERED: Pantoprazole IV* 40 MG IV ONE (01:05)
[2019-01-15] MEDS ORDERED: Diazepam SYRINGE* 5 MG/ML 2 ML SYRINGE (10 MG total) IV ONE (01:31)
[2019-01-15] MEDS ORDERED: NS 0.9% 1000 ML** 1,000 ML IV ONE (01:32)
[2019-01-15 01:34] LABS: Amylase 34 U/L (29-103)
[2019-01-15] MEDS ORDERED: Diazepam INJ (NF) 5 MG/ML 10 ML VIAL (50 MG TOTAL) IV ONE (02:00)
[2019-01-15] MEDS ORDERED: Ondansetron INJ* 2 MG/ML VIAL IV PRN (04:05)
[2019-01-15] MEDS ORDERED: fluPHENAZine HCL TAB* 5 MG PO PRN (04:10)
[2019-01-15] MEDS ORDERED: Albuterol HFA INHALER* 8 gm MDI INH PRN (04:10)
[2019-01-15] MEDS ORDERED: NS 0.9% 1000 ML** 1,000 ML IV SCH (04:15)
--- NOTE | 2019-01-15 05:18 | HP ---
ADDENDUM: Hearing voices: The patient reports he was hearing voices. He was seen in consultation by a psych river guide, who deemed the patient not in need of inpatient admission at this time. The patient denies any suicidal or homicidal ideation. EARL COX, PRESS SETTER [id number]/[facility] #: [id number] [facility]ENT[facility]yan
--- NOTE | 2019-01-15 07:23 | HP ---
ADDENDUM NOW INCLUDED ON THIS REPORT CC: [facility] * HISTORY AND PHYSICAL: DATE OF ADMISSION: 01/15/19 PROVIDER: Julee Baum NP PRIMARY CARE PROVIDER: Dr. Key at [facility] ATTENDING PHYSICIAN WHILE IN THE HOSPITAL: Dr. Ngoc Mcgrath * (dictated by Julee Baum NP). CHIEF COMPLAINT: Hearing voices, vomiting. HISTORY OF PRESENT ILLNESS: Mr. Branch is a 58-year-old gentleman with past medical history of COPD, coronary artery disease, anxiety, depression, tobacco abuse, schizophrenia, and hypertension who presented to the emergency room with complaints of hearing voices. Per the emergency room report and the patient's sister, the facility called the patient's sister reporting that the patient was not eating well, was more withdrawn than normal, and has had a cough and currently complaining of mild indigestion. He denied any abdominal pain, vomiting, or diarrhea and has had no recent medication changes. The patient was given several medications in the emergency room including Reglan, Valium with no resolution of his vomiting. Therefore, Hospital Medicine was asked to see and consult the patient for admission. PAST MEDICAL HISTORY: Significant for: 1. COPD. 2. Coronary artery disease. 3. Anxiety/depression. 4. Tobacco abuse. 5. History of schizophrenia. 6. Hypertension. PAST SURGICAL HISTORY: Reported as none per the patient. HOME MEDICATIONS: Include: 1. Losartan 12.5 mg p.o. at bedtime. 2. Spiriva 1 cap inhaled daily. 3. Lexapro 5 mg p.o. daily. 4. Albuterol HFA 6.7 g q.4 hours as needed for shortness of breath. 5. Prolixin 15 mg p.o. at bedtime, 10 mg p.o. daily p.r.n. 6. Clozaril 100 mg p.o. daily. 7. Aspirin 325 mg p.o. daily. 8. Prednisone 20 mg p.o. daily. 9. Benzonatate cap 200 mg p.o. q.8 hours as needed for cough. 10. Atorvastatin 80 mg p.o. at bedtime. ALLERGIES: BEE VENOM. FAMILY HISTORY: The patient does report that his father had esophageal cancer. Unknown about diabetes or heart disease within the family. SOCIAL HISTORY: The patient is current resident at [facility] in [place]. He does report he smokes a pack of cigarettes a day. He denies any alcohol or illicit drug use. His surrogate decision maker in the event he is unable to make his own decisions is his sister, Roosevelt, her phone number is . He is a full code. REVIEW OF SYSTEMS: The patient denies any fever or chills. Denies any abdominal pain. He does report some nausea and vomiting. He denies any diarrhea. Denies any problems with urination, hematuria or dysuria. He denies any weakness. Denies any difficulty swallowing, joint, or muscle aches. Denies any rashes, lesions, or open sores. PHYSICAL EXAMINATION GENERAL: At this time, Mr. Branch is alert and oriented, resting on the stretcher in the emergency room. He does not appear to be in any acute distress. VITAL SIGNS: Blood pressure 130/82, heart rate is 95, respirations are 18, O2 saturation is 92% on room air, temperature was 97.1. HEENT: Head is atraumatic, normocephalic. Eyes: EOMs are intact. Sclerae anicteric and not pale. Oral mucosa appeared to be moist. NECK: Supple. LUNGS: With expiratory wheezes bilaterally. ABDOMEN: Soft and nontender. Bowel sounds are present x4. EXTREMITIES: He is able to move all 4 extremities. There is no clubbing or cyanosis. NEUROLOGIC: He is awake, alert, and oriented x3. Speech is clear. Thought process is intact. There are no gross focal deficits. SKIN: Intact. PSYCH: The patient does report that he does hear voices, but they are " bouncing off of his head." LABORATORY DATA AND DIAGNOSTIC STUDIES: WBCs are 13.7, RBCs 5.0, hemoglobin 14.9, platelet count 295. Sodium 135, potassium 3.7, chloride of 100, carbon dioxide was 27, anion gap was 8, BUN was 12, creatinine 0.77, calcium 9.5. ASTs were 17, ALTs were 19, alkaline phosphatase was 129. Troponin was 0.00. TSH 1.78. Lipase 20, amylase was 34. Salicylates were less than 2.50, acetaminophen less than 15, serum alcohol is less than 10. Urinalysis was currently pending. He had a CT of the abdomen and pelvis, radiologist's impression: There is a 1 cm linear density noted in the small bowel loops, finding may represent a swallowed foreign body, recommend clinical correlation. There is extensive emphysematous changes and bullous changes noted in the bilateral lung bases. There is an infrarenal abdominal aortic aneurysm noted measuring 4 x 3.5 cm with significant mural thrombus. The prostate is enlarged measuring 5.1 x 2.7 cm. He had an electrocardiogram which showed sinus rhythm at a rate of 80 with PVCs , QTc was 448. ASSESSMENT AND PLAN: Mr. Branch is a 58-year-old male with past medical history of schizophrenia, anxiety, depression, coronary artery disease, chronic obstructive pulmonary disease, and hypertension who presented to the emergency room from [facility] with complaints of decreased appetite, being withdrawn, and complains of vomiting in the emergency. Due to the uncontrolled vomiting, Hospital Medicine was asked to see and evaluate for admission. 1. Intractable vomiting. I will place the patient on normal saline, IV fluids at 75 cc per hour. He can have Zofran 4 mg IV q.6 hours as needed for nausea and vomiting. We will monitor him overnight. I will place him on a clear liquid diet. 2. Hypertension. I am going to hold his Losartan at this time as he has been hypotensive in the emergency room with blood pressure of 102/70. 3. History of schizophrenia. He should continue on his home medication of Clozaril, Prolixin, and Lexapro as previously prescribed. 4. Chronic obstructive pulmonary disease. The patient should continue on Spiriva daily and albuterol as needed for shortness of breath. 5. Hyperlipidemia. The patient will continue on atorvastatin 80 mg p.o. daily. 6. Abdominal aortic aneurysm. The patient was found to have an abdominal aortic aneurysm on CT. He should follow up with Vascular Surgery as an outpatient for further evaluation of his abdominal aortic aneurysm. CT did not show any dissection or leak at this time. He does have a significant mural thrombus noted in the aneurysm. 7. FEN: He can have a clear liquid diet. 8. Code status: He is a full code. 9. DVT prophylaxis: Encourage ambulation. TIME SPENT: Time spent on this admission was 60 minutes, greater than half that time was spent at the bedside reviewing the events leading thus far to his hospitalization, performing physical exam, and reviewing my plan of care. I have discussed with my attending, Dr. Ngoc Mcgrath, she is in agreement with my plan. JULEE BAUM NP ADDENDUM: Hearing voices: The patient reports he was hearing voices. He was seen in consultation by a psych roller cleaner, who deemed the patient not in need of inpatient admission at this time. The patient denies any suicidal or homicidal ideation. JULEE BAUM NP [id number]/CPS #: [id number]/CPS #: [id number] DONNA
[2019-01-15] MEDS: CloZAPine TAB* 100 MG TAB PO SCH (08:27)
[2019-01-15] MEDS: Escitalopram * 5 MG TAB PO SCH (08:27)
[2019-01-15] MEDS: Tiotropium CAP.INH* CAP.INH/18 MCG (USE ORDER SET !) INH SCH (08:40)
[2019-01-15] MEDS ORDERED: Spiriva Inhaler DEVICE* 1 EACH DEVICE INH ONE (09:00)
[2019-01-15] MEDS ORDERED: Benzonatate CAP* 100 MG PO PRN (10:36)
[2019-01-15] MEDS ORDERED: Calcium Carbonate CHEW TAB* 500 MG (TUMS) PO PRN (10:36)
[2019-01-15 15:32] LABS: ABS Basophils 0.1 10^3/ul (0-0.2); ABS Eosinophils 0.1 10^3/ul (0-0.6); ABS Lymphocytes 1.8 10^3/ul (1.0-4.8); ABS Monocytes 0.8 10^3/ul (0-0.8); ABS Neutrophils 5.9 10^3/ul (1.5-7.7); Eosinophil % 0.9 %; Hematocrit 39 % (42-52); Hemoglobin 13.6 g/dL (14.0-18.0); Lymphocyte % 20.6 %; Mean Corpuscular HGB Conc 35 g/dL (31-36); Mean Corpuscular Hemoglobin 31 pg (27-31); Mean Corpuscular Volume 88 fL (80-94); Mean Platelet Volume 7.7 fL (7.4-10.4); Platelet Count 273 10^3/uL (150-450); Red Blood Count 4.47 10^6 /uL (4.18-5.48); Red Cell Distribution Width 15 % (10-15); White Blood Count 8.6 10^3/uL (3.5-10.8)
[2019-01-15 15:41] LABS: BUN/Creatinine Ratio 9.6 (8-20); Calcium 8.7 mg/dL (8.6-10.3); EGFR African American 114.7 (>60); EGFR Non-African American 94.8 (>60); Potassium 3.7 mmol/L (3.5-5.0)
[2019-01-15] MEDS ORDERED: Nicotine* 4MG (FRUIT FLAVOR) GUM PO PRN (16:30)
--- NOTE | 2019-01-15 18:37 | PN ---
Subjective Date of Service: 01/15/19 Interval History: Patient is feeling well today. Patient has an intermittent cough. Patient is craving cigarettes. Patient denies CP, SOB, N/V, abdominal pain, diarrhea. Patient denies any abnormal ingestions. Patient denies SI/HI and hallucinations or abnormal thoughts. Patient is hungry and requests a normal diet. Family History: Unchanged from Admission Social History: Unchanged from Admission Past Medical History: Unchanged from Admission Objective Active Medications: Albuterol (Ventolin Hfa Inhaler*) 1 puff INH Q4H PRN PRN Reason: WHEEZING Atorvastatin Calcium (Lipitor*) 80 mg PO BEDTIME AYANNA Benzonatate (Tessalon Cap*) 100 mg PO BID PRN PRN Reason: COUGH Calcium Carbonate (Tums*) 500 mg PO Q4H PRN PRN Reason: INDIGESTION Last Admin: 01/15/19 13:31 Dose: 500 mg Clozapine (Clozapine Tab*) 100 mg PO DAILY [facility] Last Admin: 01/15/19 08:27 Dose: 100 mg Escitalopram Oxalate (Lexapro *) 5 mg PO DAILY [facility]; Protocol Last Admin: 01/15/19 08:27 Dose: 5 mg Fluphenazine HCl (Prolixin Tab*) 15 mg PO BEDTIME AYANNA Fluphenazine HCl (Prolixin Tab*) 10 mg PO DAILY PRN PRN Reason: PSYCHOSIS Nicotine Polacrilex (Nicotine Gum*) 4 mg PO Q2H PRN PRN Reason: CRAVING Ondansetron HCl (Zofran Inj*) 4 mg IV Q6H PRN PRN Reason: NAUSEA/VOMITING Tiotropium [place] (Spiriva Cap.Inh*) 1 cap INH DAILY AYANNA Last Admin: 01/15/19 08:40 Dose: 1 cap Vital Signs - 8 hr 01/15/19 01/15/19 11:52 15:00 Temperature 97.4 F 97.2 F Pulse Rate 72 77 Respiratory 18 16 Rate Blood Pressure 117/69 99/64 (mmHg) O2 Sat by Pulse 92 97 Oximetry Oxygen Devices in Use Now: None Appearance: Patient is a 58yo male who appears stated age and is sitting in the bed in NAD. Eyes: No Scleral Icterus, PERRLA Ears/Nose/Mouth/Throat: NL Teeth, Lips, Gums, Clear Oropharnyx, Mucous Membranes Moist Neck: NL Appearance and Movements; NL JVP, Trachea Midline Respiratory: Symmetrical Chest Expansion and Respiratory Effort, Clear to Auscultation Cardiovascular: NL Sounds; No Murmurs; No JVD, RRR, No Edema Abdominal: NL Sounds; No Tenderness; No Distention, No Hepatosplenomegaly Lymphatic: No Cervical Adenopathy Extremities: No Edema, No Clubbing, Cyanosis Skin: No Rash or Ulcers, No Nodules or Sclerosis Neurological: NL Sensation, NL Muscle Strength and Tone, - - A/Ox1 Result Diagrams: 01/15/19 15:16 01/15/19 15:16 Assess/Plan/Problems-Billing Assessment: Patient is a 58yo male with a PMH for COPD, Schizophrenia, HTN, who was admitted with decreased appetite and intractable N/V. This may have been related to an ingestion of a foreign body and patient is improving at this time. - Patient Problems (1) Nausea Current Visit: Yes Status: Acute Code(s): R11.0 - NAUSEA SNOMED Code(s): 101105281 Comment: - Admitted with initially intractable nausea. - Now improved, patient is tolerating a regular diet. - This may have been due to abnormal ingestion of foreign body seen on CT. - Patient unable to further elucidate this - Not seen on repeat KUB. (2) CAD (coronary artery disease) Current Visit: No Status: Acute Code(s): I25.10 - ATHSCL HEART DISEASE OF [place] CORONARY ARTERY W/O ANG PCTRS SNOMED Code(s): 76653534 Comment: - Continue ASA, Lipitor, Metoprolol, losartan (3) Full code status Current Visit: No Status: Acute Code(s): Z78.9 - OTHER SPECIFIED HEALTH STATUS SNOMED Code(s): 976125030 (4) Schizophrenia Current Visit: No Status: Acute Code(s): F20.9 - SCHIZOPHRENIA, UNSPECIFIED SNOMED Code(s): 76424508 Comment: - Continue home fluphenazine and clozapine - Hallucinations likely due to not taking medications adequately. - Now improved (5) DVT prophylaxis Current Visit: No Status: Acute Code(s): WOE9799 - SNOMED Code(s): 121319409 Comment: -continue lovenox Status and Disposition: Observation, Likely D/C in AM.
[2019-01-15] MEDS ORDERED: Atorvastatin* 80 MG TAB PO SCH (21:00)
[2019-01-15] MEDS ORDERED: Nicotine Patch Removal NOTE PATCH OFF SCH (21:00)
[2019-01-15] MEDS ORDERED: Losartan TAB* 25 MG PO SCH (21:00)
[2019-01-15] MEDS ORDERED: fluPHENAZine HCL TAB* 5 MG PO SCH (21:00)
[2019-01-16] MEDS ORDERED: Nicotine PATCH 21 MG/24 HR* PATCH TRANSDERM SCH (09:00)
[2019-01-16] MEDS: Escitalopram * 5 MG TAB PO SCH (09:07)
[2019-01-16] MEDS: CloZAPine TAB* 100 MG TAB PO SCH (09:07)
[2019-01-16] MEDS: Tiotropium CAP.INH* CAP.INH/18 MCG (USE ORDER SET !) INH SCH (11:06)
[2019-01-16 15:39] VITALS: BP 108/63
--- NOTE | 2019-01-16 21:45 | DS ---
ADDENDUM NOW INCLUDED ON THIS REPORT CC: Dr. Key at [facility] * DISCHARGE SUMMARY: DATE OF ADMISSION: 01/14/19 DATE OF DISCHARGE: 01/16/19 PRIMARY CARE PROVIDER: Dr. Key at [facility]. MY ATTENDING WHILE IN THE HOSPITAL: Dr. Lexie Correia.* (DICTATED BY ELSYSA ENGEL) PRIMARY DISCHARGE DIAGNOSIS: Intractable nausea and vomiting, likely foreign body ingestion. SECONDARY DISCHARGE DIAGNOSES: 1. Chronic obstructive pulmonary disease. 2. Coronary artery disease. 3. Anxiety. 4. Depression. 5. Tobacco abuse. 6. Schizophrenia. 7. Hypertension. STUDIES DONE WHILE IN THE HOSPITAL: Chest x-ray from 01/14/19 read as findings consistent with COPD. Electrocardiogram from 01/14/19 read as normal sinus rhythm, PVC, no ST-segment elevation or depression, no hypertrophy or enlargement, left axis deviation compared to previous exam from 09/23/18. There is resolution of lateral T-wave inversions. Abdomen and pelvis CT from 01/14/19 read as lungs are extensively emphysematous , bullous changes noted on the bilateral lung bases, 1 mm linear ossific density noted on small bowel loop, finding may represent a swallowed foreign body. Recommend clinical correlation. There is an infrarenal abdominal aortic aneurysm noted measuring approximately 4 x 3.5 cm, significant mural thrombus. Prostate is enlarged, measuring 5.1 x 2.7 cm. Abdomen x-ray from 01/15/19 read as no evidence of obstruction and the foreign body seen on the CT, so it was not visualized on the x-ray exam. MEDICATIONS AT DISCHARGE: 1. Guaifenesin 50 mg p.o. at bedtime. 2. Lexapro 5 mg p.o. daily. 3. Atorvastatin 80 mg p.o. at bedtime. 4. Fluphenazine 10 mg p.o. daily as needed. 5. Albuterol sulfate 6.7 mg inhalation q.4 hours as needed. 6. Aspirin 325 mg p.o. daily. 7. Benzonatate 200 mg p.o. q.8 hours as needed. 8. Tiotropium 1 cap inhalation daily. 9. Clozaril 100 mg p.o. daily. 10. Calcium carbonate 500 mg p.o. q.4 hours as needed. 11. Nicotine 4 mg p.o. q.2 hours as needed. New medications at discharge: 1. Calcium carbonate. 2. Nexium. Medications discontinued at discharge: 1. Prednisone 20 mg p.o. daily. It is unclear whether the patient was taking this or not. 2. Losartan 12.5 mg p.o. at bedtime. HOSPITAL COURSE: This is a brief summary of the patient's presentation. For more details, please see history and physical from Julee Baum NP on 01/15. In brief, the patient is a 58-year-old male with past medical history significant for above, who presented to the emergency department with approximately 2 days of hearing voices, nausea, and poor appetite. In the emergency department, he had intractable vomiting, was given Reglan, Valium and Zofran with no resolution to his vomiting. He was admitted to the hospital. The patient was started on IV fluids and then clear liquid diet. The patient's vomiting improved greatly. The patient had no recollection of ingesting any foreign bodies. The patient had no signs of obstruction related to this foreign body. The patient did not pass an obvious foreign body while in the hospital. The patient's nausea improved greatly with the first several hours of his hospitalization. The patient was having signs of hallucinations. It is unclear whether he with his nausea and vomiting was able to take his daily antipsychotic medications. The patient was restarted on antipsychotic medications. There was some concern for extrapyramidal symptoms outpatient that were not reproduced while in the hospital. The patient had repeat abdominal x-ray, which did not show the above foreign body, which should be radiopaque on x-ray. The patient was alert, oriented x3 on the day of his admission and was walking around the unit without assistance and tolerated a regular diet. The patient was stable enough to discharge on 01/16/19. The patient was seen by a psych inspector welded parts who did not deem that he needed inpatient psychiatric admission and recommended no changes to his medications. PHYSICAL EXAMINATION ON DISCHARGE: General: The patient is a 58-year-old male who appears stated age, somewhat disheveled and sitting in bed, in no acute distress. Vital Signs: At the time of evaluation, temperature 97.9, pulse rate 84, respiratory rate 22, oxygen saturation 93%, and blood pressure 108/66. HEENT: Head: Normocephalic and atraumatic. Sclerae anicteric. No conjunctival injection. Nasal mucosa moist. Oral mucosa moist. No pharyngeal erythema, discharge, or exudate. Neck: Supple and nontender. No lymphadenopathy. No carotid bruit auscultated. No JVD. Cardiac: Regular rate and rhythm. No clicks, murmurs, gallops, or rubs. Pulses 2+ bilateral in dorsalis pedis, posterior tibialis, and radial areas. Respiratory: Clear to auscultation bilaterally. No wheezes, rales or rhonchi. Good air exchange bilaterally. Abdomen: Soft, nontender, and nondistended. Bowel sounds present and normoactive in all 4 quadrants. No hepatosplenomegaly. No abdominal bruits auscultated. No hepatojugular reflux. Genitourinary: No suprapubic or CVA tenderness. Skin: Clear and intact. No rashes. Neuro: Cranial nerves II through XII intact. No focal deficits. Alert and oriented to person and place. Psychiatric: Pleasant and cooperative, somewhat flat affect. DISCHARGE PLAN: The patient will be discharged back to the [facility]. The patient will be monitored for further ingestion of foreign body. It is unclear what the provoking factor for his nausea and vomiting was, though it is likely that his other symptoms were secondary to probably not absorbing his normal antipsychotic regimen. The patient is currently re-stabilized on his regimen. If he has further hallucinations while taking his medications in his normal state of health, the patient will follow up with his outpatient psychiatrist for medication adjustments. The patient should undergo monitoring as per required routine. The patient was prescribed nicotine as he was interested in a smoking cessation while in the hospital and should be reinforced with the patient as he does have signs of advanced COPD on his CT of his abdomen. The patient will be continued on secondary prevention measures for coronary artery disease, inhaler as needed for COPD symptoms. The patient should have a heart healthy diet without caffeine and engage in activity as tolerated. The patient's losartan was held while in the hospital due to normal blood pressure, this should be resumed if indicated. TIME SPENT: Approximately 60 minutes was spent on this discharge of this patient, 30 of which was spent [id number] with the patient obtaining history and physical and discussing treatment plan. ELYSSA ENGEL ADDENDUM: The patient had incidentally found small abdominal aortic aneurysm on imaging. Would recommend annual outpatient screening for worsening. Would recommend aggressive blood pressure management. ELYSSA ENGEL [id number]/CPS #: [id number]/CPS #: [id number] DONNA
--- NOTE | 2019-01-16 22:28 | DS ---
DISCHARGE SUMMARY: ADDENDUM: The patient had incidentally found small abdominal aortic aneurysm on imaging. Would recommend annual outpatient screening for worsening. Would recommend aggressive blood pressure management. ELYSSA ENGEL [id number]/CPS #: [id number]
== END 2019-01-16 16:30 | disposition home or self-care (01) ==
LOC: ED 19:05 → MED 01-15 04:05
PROVIDERS: ADMIT Internal Medicine; ATTEND Internal Medicine
DX: R11.2 Nausea with vomiting, unspecified (principal); J44.9 Chronic obstructive pulmonary disease, unspecified; I25.10 Atherosclerotic heart disease of native coronary artery without angina pectoris; F41.9 Anxiety disorder, unspecified; F32.9 Major depressive disorder, single episode, unspecified; F17.210 Nicotine dependence, cigarettes, uncomplicated; F20.9 Schizophrenia, unspecified; I10 Essential (primary) hypertension; Z79.82 Long term (current) use of aspirin; Z79.899 Other long term (current) drug therapy
CPT/HCPCS: 36415; 71046; 74019; 74177; 80048; 80053; 80320; 80329; 82150; 83690; 84443; 84484; 85025; 93005; 94640; 96361; 96374; 96375; 99284; A9270-GY; G0378; G0480; J2405; J2765; J3360; Q9967